=== PATIENT | female | born 1980 | race Caucasian/White ===

== ENCOUNTER 2018-07-02 12:27 | Emergency (ER) | payer MEDICARE ==
[~2018-07-02] VITALS: Ht 175.3 cm; Wt 77.3 kg
[2018-07-02 12:32] VITALS: Ht 175.3 cm; Wt 77.3 kg
[2018-07-02] MEDS ORDERED: TORADOL10 MG PO (19:30)
[2018-07-02 20:20] VITALS: BP 110/51
== END 2018-07-02 20:20 | disposition home or self-care (01) ==
LOC: D.ER 12:27
DX: M54.16 Radiculopathy, lumbar region (principal)